=== PATIENT | male | born 1980 ===

== ENCOUNTER 2020-06-07 18:47 | Emergency (ER) | payer SELFPAY ==
[~2020-06-07] VITALS: Ht 188 cm; Wt 91.0 kg
[2020-06-07 18:47] VITALS: BP 132/81
--- NOTE | 2020-06-07 18:47 | NUR ---
INITIAL PT CONTACT. PT PRESENTS TO ED VIA EMS C/O ETOH INTOXICATION. PER EMS, PT FOUND ON STREET BY PD, "UNABLE TO AMBULATE WITH STEADY GAIT, NO MEDICAL COMPLAINTS.". PT REPEATEDLY STATES "I JUST WANT TO LEAVE". UPON ARRIVAL TO ED, PT AMBULATORY WITH STEADY GAIT TO BATHROOM. AWAITING ERP.
--- NOTE | 2020-06-07 19:24 | NUR ---
PT ELOPED FROM ED, AMBULATORY WITH STEADY GAIT. UNWILLING TO STAY CONTINUALLY SHOUTING "I DONT NEED TO BE HERE, IM LEAVING, IM NOT EVEN THAT DRUNK. BYE".
== END 2020-06-07 19:27 | disposition left against medical advice (07) ==
LOC: ED 19:15
DX: F10.129 Alcohol abuse with intoxication, unspecified (principal); Z53.21 Procedure and treatment not carried out due to patient leaving prior to being seen by health care provider; Y90.9 Presence of alcohol in blood, level not specified